=== PATIENT | female | born 1940 | race Caucasian/White ===

== ENCOUNTER 2024-01-15 15:28 | Inpatient (IN) | payer MEDICARE, OTHER, SELFPAY ==
[2024-01-14 17:36] VITALS: BP 114/61
[2024-01-14 17:55] VITALS: BP 108/58
[2024-01-14 17:56] VITALS: BMI 24.4
[2024-01-14 18:00] VITALS: BP 121/56
--- NOTE | 2024-01-14 18:20 | ED.CVA ---
History of Present Illness
General
Chief Complaint: CVA/TIA Symptoms
Source: patient
Exam Limitations: none
Time Seen by Provider: 01/14/24 17:58
Nursing documentation reviewed up to this point in time: agreed with
Onset of Stroke Symptoms
Onset of symptoms known: No
Time pt last seen normal is known: No
Travel History
Have you had any contact with someone who has COVID-19?: No
Do you have any symptoms of coronavirus? Fever > 100 degrees, chills, cough, shortness of breath, sore throat, loss of taste or smell, muscle aches, or headache?: No
History of Present Illness
History of Present Illness:
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 Patient reports that she is having great
difficulty walking due to this dizziness. Patient describes it as a feeling as though she is drunk and unsteady on her feet. She denies vision changes, chest pain, shortness of breath and fever. Patient also reports an abnormal sensation in her
left face which she describes as a pressure but denies any specific pain or numbness. Patient denies any focal numbness or weakness with the exception of her chronic symptoms in her right face due to chronic Hoskins's palsy. Patient denies cough and
urinary symptoms. The patient reports her dizziness was so severe yesterday that she fell into a chair. She reports this is very unusual for her.
Past History
Past History
ED Past Medical History: HTN, Hypercholesterolemia, NIDDM, Hypothyroidism and Other (Hoskins's palsy)
ED Past Surgical History: Other (Surgery to address chronic Hoskins's palsy, vaginal mesh)
Social History
Tobacco: Former smoker
Alcohol: None
Drug: None
Personal: Partner (Boyfriend of 10 years)
Living: with family
Employment: Retired
Family History
Family History: Other
Review of Systems
Review of Systems
Allergies reviewed?: Yes
All Other Systems: ROS reviewed and negative except as documented in HPI and ROS
Constitutional: Reports no symptoms
EENT: Reports no symptoms
Respiratory: Reports no symptoms
Cardiac: Reports no symptoms
ABD/GI: Reports no symptoms
: Reports no symptoms
Musculoskeletal: Reports no symptoms
Skin: Reports no symptoms
Neurological: Reports dizzy
Endocrine: Reports no symptoms
Hematologic/Lymphatic: Reports no symptoms
Psychiatric: Reports no symptoms
Phy Exam
Physical Exam
Physical Exam:
Physical Exam
General: no apparent distress, not acutely ill
Neck: supple. no meningeal signs. normal psoterior pharynx
Heart: s1/s2 regular rate and rhythm, no murmur. equal radial pulses.
Lungs: no acute respiratory distress. clear bilaterally
Abdomen: normal bowel sounds. not tender. no CVAT
Neuro: alert and orientedx3. no focal neurological deficits. 5 out of 5 strength in all extremities. No drift. Normal [id number]. Right facial droop which is chronic
Skin: no rash
Psychiatric: well kept. interactive and cooperative
Extremities: no edema. no calf tenderness. negative homans. good distal pulses
Course
Orders/Labs/Results
Orders:
Orders
01/14/24 18:11
Electrocardiogram (*1) Urgent
Reason for Study: Vertigo / Dizzy
EKG- Treatment ONCE
01/14/24 18:12
CT Head W/o Iv Contrast Urgent
Comment:
Reason For Exam: dizziness
01/14/24 18:13
Complete Blood Count/With Diff Urgent
Comprehensive Metabolic Panel Urgent
PTT Urgent
Prothrombin Time Urgent
Troponin I Urgent
01/14/24 19:53
0.9% Sodium Chloride 500 ml [Nss] 500 ml IV BOLUS
01/14/24 21:42
Admit/Transfer Patient As Directed
Co-Sign Provider:
Level of Care: Observation services
Assign to:: Telemetry
Physician / Group: Davide
Diagnosis: Dizziness
Reason for Telemetry: CVA/TIA
Date to Stop Telemetry: 01/17/24
Time to Stop Telemetry: 11:00
01/14/24 21:43
Code Status As Directed
Resuscitation Status: Full Code
01/17/24 11:00
DC Protocol for Telemetry ONCE
Abnormal Lab Results
01/14/24
18:13
MPV 10.5 H fL
(7.4-10.4)
Absolute Neuts (auto) 7.5 H 10^3/uL
(1.4-6.5)
Absolute Monos (auto) 0.8 H 10^3/uL
(0.1-0.6)
Lymphocytes % 18.2 L %
(20.5-51.1)
Sodium 130 L mmol/L
(135-145)
Carbon Dioxide 20 L mmol/L
(22-30)
BUN 53 H mg/dl
(7-17)
Glucose 122 H mg/dl
(70-99)
Calcium 10.7 H mg/dl
(8.4-10.2)
01/14/24 18:13
01/14/24 18:13
Vital Signs
Initial and Last Documented VS:
Initial Vital Signs
Temp Pulse Resp BP Pulse Ox
98.7 F 60 18 114/61 96
01/14/24 17:36 01/14/24 17:36 01/14/24 17:36 01/14/24 17:36 01/14/24 17:36
Last Documented Vital Signs
Temp Pulse Resp BP Pulse Ox
98.7 F 95 16 118/54 94
01/14/24 17:36 01/14/24 20:00 01/14/24 20:00 01/14/24 20:00 01/14/24 20:00
MDM/Problems Addressed
Differential Diagnosis Includes:
Acute CVA, vertigo, dehydration
MDM/Problems Addressed:
Patient presents with acute difficulty with balance and dizziness
Chronic conditions affecting care: DM and HTN
*Radiology
Radiology exam reviewed: radiology read reviewed
*Pulse Oximetry
Patient hypoxic: no
*EKG
Interpreted by ED Provider?: NA
Interpretation: abnormal
Comparison EKG: no changes
Rate: normal
Rhythm: sinus and PVC's
[place]: left axis deviation
Interval: normal interval
QRS Pattern: left vent hypertrophy
Ischemia: non-specific ST changes
*Fuel Dock Attendant Interpretation
Rate: normal
Interpretation: normal
Rhythm: sinus
*Critical Care Note
Total Time (30-74mins, 75-104mins- exclusive of procedures): Not Applicable
Data Reviewed
Review of Other/Old Records Reveals: Testing (Cardiac echo reviewed which shows aortic stenosis from 02/2022)
Source: patient
Patient Management
Discussion with other providers: Hospitalist
Escalation/DeEscalation of care consider admission/obs:
Given patient's ongoing dizziness and acute balance issues, decision made to admit the patient for stroke workup
ED Attending Note
-
Portions of this chart may have been created with voice recognition software.� Occasional wrong word or��sound alike� substitutions may have occurred due to the inherent limitations of voice recognition software.
Discharge Plan
Departure
Patient Disposition: Admit
Date of Disposition: 01/14/24
Time of Disposition: 20:48
Admit to: Telemetry
Presentation/result/management discussed w/ accepting MD/DO: Hospitalist
Patient with high blood pressure during this ER visit?: Yes
Condition: Good
Discharge Problem:
Acute dizziness, Acute cerebrovascular accident (CVA)
Interventions
Interventions:
*Risk Screen - Suicide Last Done: 01/14/24 18:06
*General Assessment Last Done: 01/14/24 17:56
*Neglect/Abuse Screening Last Done: 01/14/24 18:06
ED- Fall Risk Assessment Last Done: 01/14/24 17:57
*ED COVID-19 Vaccine History Last Done: 01/14/24 17:56
ED- Pulmonary Assessment Last Done: 01/14/24 18:06
ED- Neurological Assessment Last Done: 01/14/24 17:59
ED- Cardiac Assessment Last Done: 01/14/24 18:05
ED Swallowing Screen Last Done: 01/14/24 19:30
[2024-01-14 18:30] LABS: % Basophils 0.5 % (0-2); % Eosinophils 2.5 % (0-6); % Immature Granulocytes 0.3 % (0-0.5); % Lymphocytes 18.2 % (20.5-51.1); % Monocytes 7.2 % (1.7-9.3); % Neutrophils 71.3 % (42.2-75.2); Absolute Basophils 0.1 10^3/uL (0-0.2); Absolute Eosinophils 0.3 10^3/uL (0-0.7); Absolute Lymphocytes 1.9 10^3/uL (1.2-3.4); Absolute Monocytes 0.8 10^3/uL (0.1-0.6); Absolute Neutrophils 7.5 10^3/uL (1.4-6.5); Hematocrit 39.5 % (37.0-47.0); Hemoglobin 13.1 g/dL (12.0-16.0); Mean Corp Hgb Conc. 33.2 g/dL (33.0-37.0); Mean Corpuscular Hgb 29.9 pg (27.0-31.0); Mean Corpuscular Volume 90.2 fL (81.0-99.0); Mean Platelet Volume 10.5 fL (7.4-10.4); Nucleated Red Blood Cells % 0 %; Platelet Count 265 10^3/uL (130-400); Red Blood Cell Count 4.38 10^6/uL (4.20-5.40); Red Cell Dist. Width 12.8 % (11.5-14.5); White Blood Cell Count 10.6 10^3/uL (4.8-10.8)
[2024-01-14 18:41] LABS: ALT (SGPT) 16 U/L (0-35); AST (SGOT) 21 U/L (14-36); Albumin 3.9 g/dl (3.5-5.0); Alkaline Phosphatase 66 U/L (38-126); Blood Urea Nitrogen 53 mg/dl (7-17); Calcium 10.7 mg/dl (8.4-10.2); Carbon Dioxide 20 mmol/L (22-30); Chloride 100 mmol/L (98-107); Estimated Creatinine Clearance 39 ml/min; Glucose 122 mg/dl (70-99); Sodium 130 mmol/L (135-145); Total Bilirubin 0.3 mg/dl (0.2-1.3); Total Protein 6.4 g/dl (6.3-8.2); eGFR > 60.00
[2024-01-14 18:43] LABS: APTT 26.2 Sec (23.4-35.0)
[2024-01-14 18:52] LABS: Troponin I < 0.012 ng/ml
[2024-01-14 20:00] VITALS: BP 118/54
[2024-01-14] MEDS: NSS 500 IV (20:02)
--- NOTE | 2024-01-14 21:46 | HPS.HSE ---
Family Physician
-
Family Physician: INTERVIEWE UNKNOWN - PT NOT
Chief Complaint
-
Unsteady Gait
History of Present Illness
Patient is an 83y F with PMH significant for hypertension, DM-II and aortic stenosis who presents to ED complaining of unsteady gait. Patient states that she developed unsteady gait and 'felt intoxicated' on Sunday. Patient reports that all day
she was unsteady and she had several instances of falling into umanzor and onto furniture. She denies any significant injury. Patient denies any visual disturbance or room spinning sensation. She felt as if she was standing on a boat / very
unsteady on her feet.
Patient also notes a pressure / congestion in the L face. She denies other headache. No cough or SOB. No CP / palpitations. No fevers / chills.
Patient denies any N/V/D.
She has chronic / mild R facial droop from remote Hoskins's Palsy.
She has chronic dry eyes / dry mouth.
Medical History
Past Medical History
Past Medical History: Reports Other
Additional Past Medical History:
Hypertension
DM-II
Moderate Aortic Stenosis
Hoskins's Palsy (R)
Hypothyroidism
Past Surgical History: Reports Other
Additional Past Surgical History:
MILAGROS
Vaginal Surgery x 2
Face Lift
Social History
Tobacco: Non-smoker
Alcohol: Occasional (Very rare)
Drug: None
Family History
Family History: Other (Father: CAD Mother: Cancer)
Allergies / Home Medications
Allergies reflects when Allergies were last updated in [facility].
Home Medications with original date entered in [facility]
Allergy/Medication List:
Allergies
Allergy/AdvReac Type Severity Reaction Status Date / Time
diphenhydramine HCl Allergy Hives Verified 01/14/24 17:40
[From Benadryl]
latex Allergy itchy, Verified 01/14/24 17:40
hives
Sulfa (Sulfonamide Allergy Hives Verified 01/14/24 17:40
Antibiotics)
antibiotic newer one Allergy itchy and Uncoded 11/08/16 09:28
hives all
over
Home Medications
Calcium/Vitamin C/Vitamin D3 1 tab PO DAILY 01/14/24
Probiotic 1 cap PO DAILY 01/14/24
acetaminophen 500 mg tablet 500 mg PO Q4H PRN mild pain 01/14/24
biotin 1,000 mcg chewable tablet 1,000 mcg PO DAILY 01/14/24
cholecalciferol (vitamin D3) 25 mcg (1,000 unit) tablet (Vitamin D3) 25 mcg PO DAILY 01/14/24
coenzyme Q10 100 mg capsule (Co Q-10) 100 mg PO DAILY 01/14/24
cyanocobalamin (vitamin B-12) 1,000 mcg tablet (Vitamin B-12) 1,000 mcg PO DAILY 01/14/24
cyclosporine 0.05 % eye drops in a dropperette (Restasis) 1 drp BOTH EYES Q12H 01/14/24
elderberry fruit 350 mg capsule 350 mg PO DAILY 01/14/24
folic acid 1 mg tablet 1 mg PO DAILY 01/14/24
gabapentin 300 mg capsule 900 mg PO TID 01/14/24
glimepiride 4 mg tablet 4 mg PO DAILY 01/14/24
glucosamine sulf dipot chlr,msm,chond 550 mg-C 30 mg-holland 1 mg capsule (Glucosamine Chondroitin) 1 cap PO DAILY 01/14/24
levothyroxine 75 mcg tablet 75 mcg PO DAILY 01/14/24
melatonin 10 mg tablet 10 mg PO HS 01/14/24
metformin 500 mg tablet 500 mg PO QID 01/14/24
niacin 500 mg tablet 500 mg PO DAILY 01/14/24
omega 0-xzq-udb-fish oil 1,000 mg (120 mg-180 mg) capsule (Fish Oil) 1 cap PO DAILY 01/14/24
omeprazole 40 mg capsule,delayed release 40 mg PO DAILY 01/14/24
pravastatin 20 mg tablet 20 mg PO HS 01/14/24
propranolol 10 mg tablet 30 mg PO HS 01/14/24
pyridoxine (vitamin B6) 100 mg tablet (Vitamin B-6) 100 mg PO DAILY 01/14/24
vitamin B complex 1 tab PO DAILY 01/14/24
Review of Systems
-
History Source: Patient
A 12 point ROS was completed and negative except as noted: Yes
Constitutional: Denies Fever or Chills
Respiratory: Denies Cough or Trouble Breathing
Cardiac: Denies Chest Pain or Palpitations
Abdomen/GI: Denies Abdominal Pain, Nausea, Vomiting or Diarrhea
: Reports Incontinence (chronic); Denies Dysuria
Musculoskeletal: Reports Other (Back Pain (chronic)); Denies Joint Pain or Edema
Neurological: Reports Dizzy; Denies Headache
Psych: Denies Depression or Anxiety
Physical Exam
Vital Signs
Vital Signs
Temp Pulse Resp BP Pulse Ox
98.7 F 95 16 118/54 94
01/14/24 17:36 01/14/24 20:00 01/14/24 20:00 01/14/24 20:00 01/14/24 20:00
Physical Exam
General: Other (83y F in no acute distress.)
HEENT: Other (Dry MM.)
Respiratory: Clear; No Wheezes, Rales or Rhonchi
Cardiac: S1/S2, Regular Rhythm and Murmur (III/ SG)
GI: Soft, Non Tender, Non Distended and Normal Bowel Sounds
Musculoskeletal: No Clubbing, No Cyanosis and No Edema
Neuro: AO x 3, Nonfocal/grossly intact and Other (Normal cerebellar signs. Strength / sensation are intact and symmetric.)
Laboratory Results
-
01/14/24 18:13
01/14/24 18:13
Laboratory Results
PT 12.0 Sec (11.4-14.6) 01/14/24 18:13
INR 0.90 01/14/24 18:13
APTT 26.2 Sec (23.4-35.0) 01/14/24 18:13
Total Bilirubin 0.3 mg/dl (0.2-1.3) 01/14/24 18:13
AST 21 U/L (14-36) 01/14/24 18:13
ALT 16 U/L (0-35) 01/14/24 18:13
Alkaline Phosphatase 66 U/L (38-126) 01/14/24 18:13
Troponin I < 0.012 ng/ml 01/14/24 18:13
Impression/Plan
-
A/P: Patient is an 83y F with PMH significant for hypertension and DM-II who presents to ED for evaluation of gait disturbance.
Ataxia
- Observe overnight for further evaluation and treatment.
- Symptoms have resolved and patient has no evidence of ataxia at present.
- Patient states that she cannot tolerate ASA due to GI distress.
- Monitor for any changes in neurologic exam.
- MRI brain in the AM.
- PT / OT eval in the AM.
- Consider Neuro evaluation if any abnormalities in exam or imaging.
- Follow for any new / recurrent symptoms.
Hyponatremia
Azotemia
Hypercalcemia
- Suspect hypovolemia given exam and constellation of lab abnormalities.
- IVF overnight and follow for improvement.
Benign Hypertension
- Stable. Continue propranolol.
DM-II
- Stable. Hold PO regimen for now.
- Follow glucose and cover with SSI as needed.
- Update A1C.
Hypothyroidism
- Continue T4 replacement.
- Update TFTs.
Dry Eyes
- ? Sjogren's given constellation of dry eye, dry MM, etc.
- Patient denies formal diagnosis of this.
- Continue supportive care including eye drops, etc.
DVT Prophylaxis: SCDs
Code Status: Full
[2024-01-14 23:35] VITALS: BMI 23.1
[2024-01-14] MEDS: NEURONTIN 900 MG PO (23:51)
[2024-01-14] MEDS: PRAVACHOL 20 MG PO (23:52)
[2024-01-14] MEDS: RESTASIS 0.05% OPHTHALMIC EMULSION 1 DROPS BOTH EYES (23:52)
[2024-01-14 23:54] VITALS: BP 103/54
[2024-01-14] MEDS: NSS 1000 IV (23:57)
--- NOTE | 2024-01-15 01:17 | PTCARENOTE ---
Pt received from ED, A&Ox3, VSS, neuro exam normal. Patient oriented to room and call werner within reach.
[2024-01-15 03:46] VITALS: BP 113/59
[2024-01-15] MEDS: SYNTHROID 75 MCG PO (05:21)
[2024-01-15 05:48] LABS: Hematocrit 36.6 % (37.0-47.0); Hemoglobin 12.3 g/dL (12.0-16.0); Mean Corp Hgb Conc. 33.6 g/dL (33.0-37.0); Mean Corpuscular Hgb 30.2 pg (27.0-31.0); Mean Corpuscular Volume 89.9 fL (81.0-99.0); Mean Platelet Volume 10.1 fL (7.4-10.4); Platelet Count 210 10^3/uL (130-400); Red Blood Cell Count 4.07 10^6/uL (4.20-5.40); Red Cell Dist. Width 12.8 % (11.5-14.5); White Blood Cell Count 6.4 10^3/uL (4.8-10.8)
[2024-01-15 06:00] VITALS: BMI 23.1
[2024-01-15 06:25] LABS: ALT (SGPT) 14 U/L (0-35); AST (SGOT) 17 U/L (14-36); Albumin 3.4 g/dl (3.5-5.0); Alkaline Phosphatase 72 U/L (38-126); Blood Urea Nitrogen 34 mg/dl (7-17); Calcium 10.1 mg/dl (8.4-10.2); Carbon Dioxide 22 mmol/L (22-30); Chloride 109 mmol/L (98-107); Estimated Creatinine Clearance 52 ml/min; Glucose 179 mg/dl (70-99); HDL Cholesterol 52 mg/dl; LDL Cholesterol, Calculated 109 mg/dl; Potassium 4.5 mmol/L (3.5-5.1); Sodium 138 mmol/L (135-145); Total Bilirubin 0.1 mg/dl (0.2-1.3); Total Cholesterol 207 mg/dl (50-199); Total Protein 5.7 g/dl (6.3-8.2); Triglyceride 233 mg/dl (10-149); Very Low Density Lipoprotein 46 mg/dl (0-30); eGFR > 60.00
[2024-01-15 06:37] LABS: TSH Reflex To Free T4 0.03 uIU/ml (0.47-4.68)
[2024-01-15 07:06] LABS: Free T4 1.17 ng/dl (0.78-2.19)
[2024-01-15] MEDS: NEURONTIN 900 MG PO (08:01)
[2024-01-15] MEDS: PROTONIX 40 MG PO (08:02)
[2024-01-15] MEDS: FOLVITE 1 MG PO (08:02)
[2024-01-15 08:07] VITALS: BP 112/60
[2024-01-15] MEDS: RESTASIS 0.05% OPHTHALMIC EMULSION 1 DROPS BOTH EYES (08:15)
[2024-01-15 08:42] LABS: Glucose - Point of Care 112 mg/dl (70-99)
[2024-01-15 08:43] LABS: Glycohemoglobin (HgbA1c) 7.8 % (4.0-5.6)
[2024-01-15 10:46] VITALS: BP 125/63
--- NOTE | 2024-01-15 11:16 | W.PN.HOSP.TC ---
Addendum entered and electronically signed by Ivan Coy MD 01/15/24 15:38:
Patient states she is feeling back to baseline. Patient worked with physical and Occupational Therapy without any adverse events. Patient without any ataxia. Patient without any confusion. Discussed about MRI finding. Patient is agreeable to
reducing gabapentin dosing. Patient has three hundred mg tablets at home dose recommended 1 tablet 3 times daily. Recommended to stop melatonin. Patient stated she was told by her computer aided design designer to take Synthroid 6 times weekly however she is
taking it daily. Recommended to discuss Synthroid and metformin dosing with her primary computer aided design designer. Patient was agreeable and amenable to dispo planning and also agreed for discharge home today.
More than 30 minutes spent in discharge including
Final examination of the patient
Summarizing hospital stay
Instructions for continuing care to all relevant caregivers
Preparation of discharge records, prescriptions, and referral forms
Total time spent (in minutes):45
Original Note:
Today's Communication/Plan
-
MR pending
reduce gabapentin
stop IVF
stop melatonin
pt/ot
Assessment / Plan
Assessment / Plan
A/P:� Patient is an 83y F with PMH significant for hypertension and DM-II who presents to ED for evaluation of gait disturbance.
Ataxia
Mechanical fall
above likely 2/2 r/o CVA vs Gabapentin and melatonin adverse events
�- Symptoms have resolved and patient has no evidence of ataxia at present.
�- Patient states that she cannot tolerate ASA due to GI distress.
�- Monitor for any changes in neurologic exam.
�- MRI brain in the AM.
�- PT / OT eval in the AM.
�- Consider Neuro evaluation if any abnormalities in exam or imaging.
�- Follow for any new / recurrent symptoms.
- Reduce gabapentin to 300mg TID starting tomm and stop melatonin.
Hyponatremia
Azotemia
Hypercalcemia
�- Suspect hypovolemia given exam and constellation of lab abnormalities.
�- IVF overnight and follow for improvement.
- Resolved. Stop IVF.
Benign Hypertension
�- Stable.� Continue propranolol.
DM-II
�- Stable.� Hold PO regimen for now.
�- Follow glucose and cover with SSI as needed.
�- Update A1C at 74.8.
Hypothyroidism
�- Continue T4 replacement.
�- Update TFTs.
Dry Eyes
�- ? Sjogren's given constellation of dry eye, dry MM, etc.
�- Patient denies formal diagnosis of this.
�- Continue supportive care including eye drops, etc.
DVT Prophylaxis:� SCDs
Code Status:� Full
Anticipated Discharge: Within 24 hours
Subjective/Interval History
-
Date of Service: January 15, 2024
states was feeling unsteady at home
no other focal weakness
Objective Data
-
Labs:
Laboratory Results
01/15/24
05:10
WBC 6.4
Hgb 12.3
Hct 36.6 L
Plt Count 210 D
Sodium 138 D
Potassium 4.5
Chloride 109 H
Carbon Dioxide 22
BUN 34 H
Creatinine 0.6
Glucose 179 H
Calcium 10.1
Total Bilirubin 0.1 L
AST 17
ALT 14
Alkaline Phosphatase 72
Vital Signs:
Vital Signs
Temp Pulse Resp BP Pulse Ox
97.7 F 83 16 125/63 96
01/15/24 10:46 01/15/24 10:46 01/15/24 10:46 01/15/24 10:46 01/15/24 10:46
Physical Exam
-
General: Well Developed and No Apparent Distress
HEENT: Normocephalic, Atraumatic and Moist Mucous Membranes
Respiratory: Clear to Auscultation
Cardiac: Regular Rhythm and S1/S2; Negative Murmur, Rub or Gallop
GI: Soft, Nontender, Nondistended and Normal Bowel Sounds; Negative Organomegaly
Rectal: Deferred by Provider
Musculoskeletal: No Clubbing, No Cyanosis, No Edema and Other (arthritic changes noted on b/l Feet )
Skin: Negative Rash
Neuro: Awake, Alert, Oriented, No Motor Deficits and Nonfocal/Grossly Intact
Psych: Calm
Data Reviewed
-
Total Time Spent with Patient (in minutes): 55
[2024-01-15 12:30] VITALS: BP 125/69; BP 126/71; BP 144/70; PULSE 82; PULSE 93; PULSE 96
[2024-01-15 12:38] LABS: Glucose - Point of Care 133 mg/dl (70-99)
[2024-01-15 13:12] VITALS: BP 125/69; BP 126/71; BP 144/70; PULSE 86; PULSE 93; PULSE 96
--- NOTE | 2024-01-15 15:33 | CM ---
Addendum entered by Mary Anne Estrada RN 01/15/24 16:24:
changed patient to inpatient status. IMM reviewed with patient. She is in agreement with discharge today.
Original Note:
Alert awake oriented patient who lives at [facility] living in a apartment. She is independent in driving and all activities of daily living.Offered VN she declined. She uses rollator, walker scooter as needed. [facility] letter given pt upset saying
she was told she was inpatient. She declined to sign MCKENZIE.
No SNF/VN hx
Pharmacy [facility]
PCP Dr Hernandez
PLAN Home no needs
--- NOTE | 2024-01-15 15:38 | W.DCSUMMARY ---
Discharge Summary
Discharge Data
Date of Admission: 01/15/24
Date of Discharge: 01/15/24
-
Pending Results: No
Hospital Course
83-year-old female past medical history of hypertension, diabetes, neuropathy, hypothyroidism, diabetes mellitus was presenting from home with complaining of gait and disturbances, mechanical fall, and feeling intoxicated. Patient denies any
alcohol intoxication. Patient states she felt like she was standing' and very unsteady. Patient underwent CT of the head which was negative for acute pathology. Patient was also found severely dehydrated. Was found to hyponatremia. Patient
received IV fluid resuscitation aggressively. Sodium stabilized. Azotemia resolved. Patient was tolerating diet. Patient underwent MRI of the brain which is negative for acute stroke. Small meningioma was noted. Patient with cervical
spondyloarthropathy without any upper extremity problems. Patient was eval by physical and Occupational Therapy. Recommended home VN. Patient taking increasing amount of gabapentin of 900 mg 3 times daily and with a reduced creatinine clearance
patient probably was suffering from adverse events. Patient was also taking 10 mg of melatonin. Gabapentin dose was decreased to 300 mg 3 times daily and melatonin was completely stopped. Patient was recommended follow-up with her primary
speech scientist for metformin and Synthroid dosing. Patient was agreeable and amenable to discharge planning.
Discharge Plan
-
Discharge Diagnosis/Procedures: Mechanical fall
Ataxia
Suspected encephalopathy likely secondary to gabapentin and melatonin adverse events
Hyponatremia
Azotemia
Mild hypercalcemia
Condition: Fair
Diet: Low Cholesterol and Diabetic, Carb Controlled
Activity: With assistance and As tolerated
Driving Restrictions: Not until seen by your Dr
Other Services: VN
Activity Restrictions/Additional Instructions:
�Sjogren's�
Follow-up with your speech scientist to discuss further metformin and Synthroid dosing.
Referrals:
Luis Alberto Latham MD [Active] - None (13 x 14 x 11 mm probable meningioma -make appointment)
UNKNOWN - PT NOT,INTERVIEWE [Family Provider] - in less than 1 week
Additional Discharge Medication Instructions: Stop melatonin
Reduce gabapentin doseage to 300 mg 3 times daily from 900 mg 3 times daily
Prescriptions:
New
gabapentin 300 mg Capsule
300 mg PO TID 30 Days Qty: 90 0RF
Continued
metformin 500 mg tablet
500 mg PO QID
vitamin B complex Tablet Extended Release
1 tab PO DAILY
cyanocobalamin (vitamin B-12) [Vitamin B-12] 1,000 mcg Tablet
1,000 mcg PO DAILY
omeprazole 40 mg capsule,delayed release(DR/EC)
40 mg PO DAILY
acetaminophen 500 mg Tablet
500 mg PO Q4H PRN (Reason: mild pain)
levothyroxine 75 mcg tablet
75 mcg PO DAILY AT 0700
propranolol 10 mg tablet
30 mg PO HS
glimepiride 4 mg tablet
4 mg PO DAILY
niacin 500 mg Tablet
500 mg PO DAILY
folic acid 1 mg Tablet
1 mg PO DAILY
pravastatin 20 mg tablet
20 mg PO HS
pyridoxine (vitamin B6) [Vitamin B-6] 100 mg Tablet
100 mg PO DAILY
coenzyme Q10 [Co Q-10] 100 mg Capsule
100 mg PO DAILY
cyclosporine [Restasis] 0.05 % dropperette
1 drp BOTH EYES Q12H
cholecalciferol (vitamin D3) [Vitamin D3] 25 mcg (1,000 unit) Tablet
25 mcg PO DAILY
omega 9-cei-brk-fish oil [Fish Oil] 1,000 mg (120 mg-180 mg) Capsule
1 cap PO DAILY
biotin 1,000 mcg Tablet,Chewable
1,000 mcg PO DAILY
Glucosamine Chondroitin 550-30-1 mg Capsule
1 cap PO DAILY
elderberry fruit 350 mg Capsule
350 mg PO DAILY
Calcium/Vitamin C/Vitamin D3
1 tab PO DAILY
Probiotic
1 cap PO DAILY
Discontinued
gabapentin 300 mg capsule
900 mg PO TID
melatonin 10 mg Tablet
10 mg PO HS
Discharge Orders:
Discharge Patient (As Directed); Ordered 01/15/24
Ordered By: Ivan Coy
[2024-01-15 15:40] VITALS: BP 141/67
[2024-01-15 17:12] LABS: Glucose - Point of Care 104 mg/dl (70-99)
== END 2024-01-15 17:25 | disposition home or self-care (01) | DRG 92 ==
LOC: 3 WEST ACU 15:28
PROVIDERS: ADMITTING PHYSICIAN Hospitalist; ATTENDING PHYSICIAN Hospitalist; EMERGENCY PHYSICIAN Emergency Medicine
DX: G92.8 Other toxic encephalopathy (principal); E87.1 Hypo-osmolality and hyponatremia; T42.6X5A Adverse effect of other antiepileptic and sedative-hypnotic drugs, initial encounter; R79.89 Other specified abnormal findings of blood chemistry; E83.52 Hypercalcemia; R27.0 Ataxia, unspecified; W18.30XA Fall on same level, unspecified, initial encounter; E11.40 Type 2 diabetes mellitus with diabetic neuropathy, unspecified; E03.9 Hypothyroidism, unspecified; D32.9 Benign neoplasm of meninges, unspecified; E86.0 Dehydration; Z79.84 Long term (current) use of oral hypoglycemic drugs
CPT/HCPCS: 70450; 70551; 80053; 80061; 82248; 82962; 83036; 84439; 84443; 84484; 85025; 85027; 85610; 85730; 93005; 96360; 96361; 97162; 97166; 99285

== ENCOUNTER → 2024-03-20 13:12 | Outpatient (REF) | payer MEDICARE, OTHER, SELFPAY | LOC: RCS 13:12 | PROVIDERS: ATTENDING PHYSICIAN Internal Medicine Cardiovascular Disease; FAMILY PHYSICIAN Family Medicine | DX: I35.0 Nonrheumatic aortic (valve) stenosis (principal) | CPT/HCPCS: 93306 ==